=== PATIENT | female | born 1970 | race Hispanic/Latino ===

== ENCOUNTER → 2017-08-27 | Outpatient (CLI) | payer OTHER, MEDICARE ==
[~2017-08-27] MED LIST: ACET500C50 PO; ATOR10 PO; BUPR75TA3 PO; CALC-1115 PO; CETI10TA86 PO; FISH1CAP49 PO; GLIP10TA9 PO; GLUC-145 PO; INSU100V12 SQ; LIRA0.6P SQ; METF500T6 PO; OMEP20CA10 PO; VENL75 GT
== END | disposition home or self-care (01) ==
LOC: RAH 14:29
PROVIDERS: ATTEND Internal Medicine
DX: M47.816 Spondylosis without myelopathy or radiculopathy, lumbar region (principal); M43.16 Spondylolisthesis, lumbar region
CPT/HCPCS: 72070; 72100

== ENCOUNTER → 2017-09-13 | Outpatient (CLI) | payer OTHER, MEDICARE | END | disposition home or self-care (01) | LOC: RAH 12:04 | PROVIDERS: ATTEND Internal Medicine | DX: M19.041 Primary osteoarthritis, right hand (principal) | CPT/HCPCS: 73130 ==

== ENCOUNTER → 2018-02-07 | Outpatient (CLI) | payer OTHER ==
[~2018-02-07] MED LIST changes: +METF-444 PO; -METF500T6 PO
== END | disposition home or self-care (01) ==
LOC: RAH 14:18
PROVIDERS: ATTEND Internal Medicine
DX: Z45.41 Encounter for adjustment and management of cerebrospinal fluid drainage device (principal); Z98.2 Presence of cerebrospinal fluid drainage device; Z90.49 Acquired absence of other specified parts of digestive tract
CPT/HCPCS: 72100

== ENCOUNTER → 2018-03-23 | Outpatient (CLI) | payer OTHER | END | disposition home or self-care (01) | LOC: RAH 11:05 | PROVIDERS: ATTEND Internal Medicine | DX: Z12.31 Encounter for screening mammogram for malignant neoplasm of breast (principal) | CPT/HCPCS: 77067 ==

== ENCOUNTER 2019-01-08 15:26 | Emergency (ER) | payer OTHER, MEDICARE ==
[~2019-01-08 15:26] MED LIST changes: -CALC-1115 PO; +CALC-1205 PO; +OMEP-50 PO; -OMEP20CA10 PO
[2019-01-08] MEDS ORDERED: ACETAMINOPHEN EXTRA STRENGTH 500 MG TABLET ONE (16:08)
[2019-01-08] MEDS ORDERED: CEPHALEXIN 500 MG CAPSULE ONE (16:08)
== END 2019-01-08 16:23 | disposition home or self-care (01) ==
LOC: EDH 15:26
DX: N75.1 Abscess of Bartholin's gland (principal); I10 Essential (primary) hypertension; E78.00 Pure hypercholesterolemia, unspecified; E11.9 Type 2 diabetes mellitus without complications; F32.9 Major depressive disorder, single episode, unspecified; Z90.710 Acquired absence of both cervix and uterus; Z72.0 Tobacco use

== ENCOUNTER → 2019-01-09 | Outpatient (CLI) | payer OTHER, MEDICARE | END | disposition home or self-care (01) | LOC: RAH 08:44 | PROVIDERS: ATTEND Neurological Surgery | DX: M47.816 Spondylosis without myelopathy or radiculopathy, lumbar region (principal); M48.061 Spinal stenosis, lumbar region without neurogenic claudication; M43.16 Spondylolisthesis, lumbar region; Z90.49 Acquired absence of other specified parts of digestive tract | CPT/HCPCS: 72120 ==

== ENCOUNTER → 2020-09-09 | Outpatient (CLI) | payer OTHER, MEDICARE ==
[~2020-09-09] MED LIST changes: -OMEP-50 PO; +OMEP20CA12 PO
== END | disposition home or self-care (01) ==
LOC: RAH 14:34
PROVIDERS: ATTEND Internal Medicine
DX: M25.551 Pain in right hip (principal)
CPT/HCPCS: 73502

== ENCOUNTER → 2020-09-27 | Outpatient (CLI) | payer OTHER, MEDICARE | END | disposition home or self-care (01) | LOC: RAH 11:17 | PROVIDERS: ATTEND Internal Medicine | DX: Z12.31 Encounter for screening mammogram for malignant neoplasm of breast (principal) | CPT/HCPCS: 77067 ==

== ENCOUNTER → 2022-07-06 | Outpatient (CLI) | payer OTHER, MEDICARE ==
[~2022-07-06] MED LIST changes: -CETI10TA86 PO; +CETI10TA87 PO
== END | disposition home or self-care (01) ==
LOC: RAH 13:50
PROVIDERS: ATTEND Internal Medicine
DX: Z12.31 Encounter for screening mammogram for malignant neoplasm of breast (principal)
CPT/HCPCS: 77067

== ENCOUNTER → 2023-02-24 | Outpatient (CLI) | payer OTHER, MEDICARE | END | disposition home or self-care (01) | LOC: RAH 07:53 | PROVIDERS: ATTEND Internal Medicine | DX: K76.0 Fatty (change of) liver, not elsewhere classified (principal); R10.11 Right upper quadrant pain | CPT/HCPCS: 76705 ==

== ENCOUNTER → 2023-08-17 | Outpatient (CLI) | payer OTHER, MEDICARE | END | disposition home or self-care (01) | LOC: RAH 08:56 | PROVIDERS: ATTEND Internal Medicine Gastroenterology | DX: K21.9 Gastro-esophageal reflux disease without esophagitis (principal); R12 Heartburn | CPT/HCPCS: 74240 ==

== ENCOUNTER → 2024-03-16 | Outpatient (CLI) | payer OTHER, MEDICARE ==
[~2024-03-16] MED LIST changes: +GLIP10TA16 PO; -GLIP10TA9 PO
--- NOTE | 2024-03-16 13:54 | HMCIMG ---
FOOT LIMITED 2VWS RT HISTORY: Status post fall COMPARISON: None TECHNIQUE: Preimages of right foot were obtained. FINDINGS: There is no acute displaced fracture or dislocation. There is a calcaneal spur. Degenerative changes are seen. IMPRESSION: 1. Findings as described above.
--- NOTE | 2024-03-16 13:57 | HMCIMG ---
HIP UNILAT 2-3VW RIGHT HISTORY: Right hip pain COMPARISON: None TECHNIQUE: 2 images of right hip were obtained. FINDINGS: Portion of the drainage tube is seen with distal tip in the left pelvis. Fecal material is seen in the colon. There is no acute displaced fracture or dislocation. Degenerative changes are seen. IMPRESSION: 1. Findings as described above.
--- NOTE | 2024-03-16 13:59 | HMCIMG ---
CERV SPINE 2-3VWS HISTORY: Status post fall COMPARISON: None FINDINGS: 4 images of cervical spine were obtained. There are degenerative changes with cervical spine spondylosis. Anterior osteophytes are seen at C4, C5 and C6 levels. There is straightening of normal lordotic curvature which may be related to muscle spasm or positioning. No loss of vertebral height is seen. No fracture or dislocation is seen. Degenerative changes are seen. IMPRESSION: 1. No fracture is seen. DJD with cervical spine spondylosis.
--- NOTE | 2024-03-16 13:59 | HMCIMG ---
ELBOW 2VWS RT HISTORY: Status post fall COMPARISON: None TECHNIQUE: 2 images of right elbow were obtained. FINDINGS: There is no acute displaced fracture or dislocation. Degenerative changes are seen. IMPRESSION: 1. Findings as described above.
== END | disposition home or self-care (01) ==
LOC: RAH 10:14
PROVIDERS: ATTEND Internal Medicine
DX: M47.812 Spondylosis without myelopathy or radiculopathy, cervical region (principal); M19.021 Primary osteoarthritis, right elbow; M16.11 Unilateral primary osteoarthritis, right hip; M19.071 Primary osteoarthritis, right ankle and foot; W19.XXXA Unspecified fall, initial encounter; Y93.89 Activity, other specified; Y92.89 Other specified places as the place of occurrence of the external cause; Y99.8 Other external cause status
CPT/HCPCS: 72040; 73070; 73502; 73620

== ENCOUNTER → 2025-02-06 | Outpatient (CLI) | payer OTHER, MEDICARE ==
--- NOTE | 2025-02-06 14:36 | HMCIMG ---
EXAM: XR Left Hand, 3 or More Views. CLINICAL HISTORY: Pain localized to the 4th digit (ring finger). COMPARISON: None provided. FINDINGS: BONES: Dorsal intra-articular fracture at the base of the distal phalanx of the 4th (ring) finger, consistent with AO/BECKA Type 7.3.B1, Eaton Type II, and Antony Type 1B classification. There is minimal displacement and the articular surface remains largely congruent. No other osseous injury identified. JOINTS: The dorsal intra-articular fracture at the base of the distal phalanx of the 4th (ring) finger involves the joint, with the articular surface remaining largely congruent. No dislocation. The joint spaces of the remaining hand structures are normal. SOFT TISSUES: Associated mild adjacent soft tissue swelling/contusion. IMPRESSION: 1. Dorsal intra-articular fracture at the base of the distal phalanx of the 4th (ring) finger with minimal displacement. 2. Associated mild adjacent soft tissue swelling/contusion. /[place]
== END | disposition home or self-care (01) ==
LOC: RAH 11:28
PROVIDERS: ATTEND Internal Medicine
DX: S62.635A Displaced fracture of distal phalanx of left ring finger, initial encounter for closed fracture (principal); S69.92XA Unspecified injury of left wrist, hand and finger(s), initial encounter; X58.XXXA Exposure to other specified factors, initial encounter; Y93.89 Activity, other specified; Y92.89 Other specified places as the place of occurrence of the external cause; Y99.8 Other external cause status
CPT/HCPCS: 73130